=== PATIENT | female | born 1975 | race Caucasian/White ===

== ENCOUNTER 2018-06-02 16:32 | Emergency (ER) | payer BC, MEDICAID ==
[~2018-06-02] VITALS: Ht 167.6 cm; Wt 90.7 kg
[2018-06-02 16:51] VITALS: BP 136/90
--- NOTE | 2018-06-02 17:41 | NUR ---
Patient discharged to home in stable condition. Written and verbal after care instructions given. Patient verbalizes understanding of instruction.
== END 2018-06-02 17:40 | disposition home or self-care (01) ==
LOC: ER 16:36
DX: J02.9 Acute pharyngitis, unspecified (principal); F32.9 Major depressive disorder, single episode, unspecified